=== PATIENT | female | born 1995 | race Two or more races ===

== ENCOUNTER 2023-12-13 17:10 | Emergency (ER) | payer OTHER ==
[~2023-12-13] VITALS: Ht 160 cm; Wt 86.1 kg
[2023-12-13 17:27] VITALS: BP 188/101; RESP 16; O2SAT 98
[2023-12-13 17:30] VITALS: PULSE 83
[2023-12-13] MEDS: cloNIDine HCL 0.1 MG TAB PO ONE (17:34)
== END 2023-12-13 18:30 | disposition left against medical advice (07) ==
LOC: ER 17:10
DX: R03.0 Elevated blood-pressure reading, without diagnosis of hypertension (principal); Z53.21 Procedure and treatment not carried out due to patient leaving prior to being seen by health care provider
CPT/HCPCS: 93005